=== PATIENT | male | born 1980 | race Caucasian/White ===

== ENCOUNTER 2022-10-08 07:07 | Day surgery (SDC) | payer BC ==
[2022-10-07 09:41] VITALS: BMI 34.0
[2022-10-08] MEDS ORDERED: Lidocaine 1% (PF) 30 ML VIAL ONE (07:40)
[2022-10-08] MEDS ORDERED: fentaNYL 50 mcg/mL 1 mL Vial ONE (07:40)
[2022-10-08] MEDS ORDERED: Midazolam HCl 2 mg/2 ml Vial ONE ×2 (07:40→09:00)
[2022-10-08] MEDS ORDERED: Ropivacaine 0.5% HCl/PF (150 MG/30 ML VIAL) ONE (07:40)
[2022-10-08] MEDS ORDERED: Ropivacaine 0.2% HCl/PF 0 ML ONE (07:40)
[2022-10-08 08:34] LABS: #Eosinphils 0.1 thou/uL (0.0-0.7); #Monocytes 0.3 thou/uL (0.11-0.59); #Neutrophils 2.9 thou/uL (1.40-6.50); %Basophils 0.2 % (0.0-1.0); %Eosinophils 1.6 % (0.0-10.0); %Lymphocytes 35.4 % (21.0-51.0); %Monocytes 6.7 % (0.0-10.0); %Neutrophils 55.7 % (42.0-75.0); Hemoglobin 15.5 g/dL (14.0-18.0); Mean Corpuscular HGB CONC 33.3 g/dL (32.0-36.0); Mean Corpuscular Hemoglobin 27.5 pg (27.0-31.0); Mean Corpuscular Volume 82.6 fl (78.0-98.0); Mean Platelet Volume 9.5 fL (7.4-10.4); Platelet Count 215 10x3/uL (130-400); RBC Distribution Width 12.9 % (11.5-14.5); Red Blood Cell (RBC) Count 5.64 mill/uL (4.70-6.10); White Blood Cell (WBC) Count 5.1 10x3/uL (4.8-10.8)
[2022-10-08] MEDS ORDERED: Bupivacaine HCl 0.5%/Epinephrine 1:200,000/PF 30 ml Vial ONE (08:59)
[2022-10-08] MEDS ORDERED: Ondansetron PF 4 MG/2 ML Vial ONE (08:59)
[2022-10-08] MEDS ORDERED: Ketorolac Tromethamine 30 MG/ML VIAL ONE (08:59)
[2022-10-08] MEDS ORDERED: Rocuronium Bromide 10 MG/ML (10ML VIAL) ONE (08:59)
[2022-10-08] MEDS ORDERED: PROPOFOL 200 MG/20 ML VIAL ONE (08:59)
[2022-10-08] MEDS ORDERED: Sodium Chloride 0.9% 100 ML ONE (09:02)
[2022-10-08] MEDS ORDERED: CEFAZOLIN 2 GM VIAL ONE (09:02)
[2022-10-08] MEDS ORDERED: fentaNYL PF 100 MCG/2 ML SYRINGE ONE ×2 (09:03→09:04)
[2022-10-08] MEDS ORDERED: Promethazine HCl 25 MG/ML VIAL IM PRN (09:15)
[2022-10-08] MEDS ORDERED: Ropivacaine 0.2% 550 ML 550 ML NERVE BLCK SCH (09:15)
[2022-10-08] MEDS ORDERED: Ondansetron PF 4 MG/2 ML Vial IVP PRN (09:15)
[2022-10-08] MEDS ORDERED: HYDROcodone/Acetaminophen 5/325 mg Tablet PO PRN ×2 (09:15)
[2022-10-08] MEDS ORDERED: traMADol HCl 50 MG TAB PO PRN ×2 (09:15)
[2022-10-08] MEDS ORDERED: Zolpidem Tartrate 5 MG TAB PO PRN (09:15)
[2022-10-08] MEDS ORDERED: Bupivacaine/Epinephrine 0.25% 30 ML VIAL ONE (09:19)
[2022-10-08] MEDS ORDERED: Bupivacaine PF 0.5% 30 ML VIAL ONE (09:50)
[2022-10-08] MEDS ORDERED: Ketorolac Tromethamine 30 MG/ML VIAL IVP SCH (12:00)
== END 2022-10-08 14:26 | disposition home or self-care (01) ==
LOC: SDC 07:07
PROVIDERS: ATTEND Orthopaedic Surgery
PROC: 0LQ24ZZ Repair Left Shoulder Tendon, Percutaneous Endoscopic Approach (ICD-10-PCS; principal; 2022-10-08)
PROC: 0LS40ZZ Reposition Left Upper Arm Tendon, Open Approach (ICD-10-PCS; principal; 2022-10-08)
PROC: 0RHK04Z Insertion of Internal Fixation Device into Left Shoulder Joint, Open Approach (ICD-10-PCS; principal; 2022-10-08)
DX: M25.312 Other instability, left shoulder (principal); M75.102 Unspecified rotator cuff tear or rupture of left shoulder, not specified as traumatic; S43.432A Superior glenoid labrum lesion of left shoulder, initial encounter; G47.30 Sleep apnea, unspecified; Z87.891 Personal history of nicotine dependence
CPT/HCPCS: 85025; A4306; C1713; J1885; J2001; J2250; J2405; J2704; J2795; J3010; J3490; S0020